=== PATIENT | male | born 1990 | race Caucasian/White ===

== ENCOUNTER 2022-03-20 15:49 | Inpatient (IN) | payer MEDICAID, SELFPAY ==
[2022-03-20] VITALS (8 sets, daily range): BP systolic 109–141; BP diastolic 64–87; PULSE 63–84; RESP 15–20; TEMP 36.3–37.4; O2SAT 97–99; BMI 25.0
--- NOTE | 2022-03-20 16:30 | DI.RAD_ITS ---
Exam(s) XR FINGER LT MIDDLE EXAM: XR FINGER LT MIDDLE EXAM DATE/TIME: CLINICAL HISTORY: pain, swelling. TECHNIQUE: 2D digital imaging was performed of the left finger. Three views were obtained. PA/AP, oblique, and lateral views were obtained. COMPARISON: None. FINDINGS: BONES: No acute fracture is present. No bony destructive lesion is seen. JOINTS: No dislocation is present. Joint spaces are unremarkable. SOFT TISSUE: There is moderately diffuse soft tissue swelling of the 3rd finger. No radiopaque forei gn body or soft tissue air is identified. IMPRESSION: 1. Moderately diffuse soft tissue swelling of the 3rd finger. 2. Otherwise unremarkable examination. DATA REPOSITORY: RADIATION DOSE DELIVERED:
--- NOTE | 2022-03-20 16:33 | ED.GENADUL_ITS ---
Discharge Plan Disposition Patient Disposition: [facility] INPATIENT Condition: Stable Discharge Details Chief Complaint: Cellulitis Clinical Impression: Flexor tenosynovitis of finger Primary Care Provider: Ruth Alejandro ED Provider: Zane Betancur Home Meds and New Rx's Prescriptions: No Action Fish Oil 1 EACH capsule 1 cap PO DAILY Glucosamine Sulf-Chondroitin 1 EACH capsule 1 tab PO DAILY ibuprofen 600 MG tablet 600 mg PO QID PRN (Reason: Pain) Qty: 15 0RF Medical Decision Making 32 yo male who denies chronic medical problems comes in with left middle finger pain and swelling for 3-4 days. 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 He has had increased pain and swelling since then tot he anterior left middle finger. He denies fevers.He appears uncomfortable and localizes the pain to the middle left finger. He has it in flexed position and the entire flexor portion of the left finger is swollen. Has significant pain with passive extension of the finger, does have a small puncture wound of the mid proximal anterior left middle finger. Suspect flexor tenosynovitis, will order xray, cbc, cmp, crp, esr and consult ortho xray shows no foreign body but does have significant swelling, Dr. Burger from ortho evaluated and plan for OR, pt updated and agrees with plan Differential Diagnosis Differential Diagnosis: flexor tenosynivitis, cellulitis Imaging Data Radiologic Study: Attestation: I personally reviewed and interpreted this imaging study as follows: Imaging: X-Ray Radiologist's impression: IMPRESSION: 1. [id number] soft tissue swelling of the 3rd digit could reflect cellulitis. Recommend clinical correlation. 2. No fractures or subluxations. 3. No radiographic evidence of acute osteomyelitis. Lab Data Lab results reviewed: Yes I reviewed the patient's lab results. HPI General Mode of arrival: ambulatory . Date/Time Provider Initiated Documentation: 03/20/22 16:15 . Limitations to Documentation: no limitations . Information obtained by: patient . History of Present Illness 32 year old M presents to the emergency department with the chief complaint of left middle finger pain, described as moderate, Patient started experiencing this day(s) (3) and it has been constant. No relieving factors improve symptom(s), No exacerbating factors reported . Patient notes no other symptoms.. Patient did receive the following treatments prior to arrival, none Related Data Home Medications Medication Instructions Recorded Confirmed glucosamine sulfate dipotassium Cl 1 tab PO DAILY 02/12/17 03/20/22 500 mg-chondroitin 400 mg capsule (Glucosamine Sulfate 2 KCL-Chondroitin) ibuprofen 600 mg tablet 600 mg PO QID PRN Pain #15 tabs 02/12/17 03/20/22 omega-3 fatty acids-fish oil 340 1 cap PO DAILY 02/12/17 03/20/22 mg-1,000 mg capsule (Fish Oil) Previous Rx's Medication Instructions Recorded ibuprofen 600 mg tablet 600 mg PO QID PRN Pain #15 tabs 02/12/17 Allergies Allergy/AdvReac Type Severity Reaction Status Date / Time No Known Allergies Allergy Unverified 03/20/22 16:11 General Stated Complaint: Cellulitis CK: 4 Review of Systems All systems reviewed & are unremarkable except as noted in HPI and below Constitutional Constitutional: Denies chills, Denies fever(s) and Denies weakness Cardiovascular Cardiovascular: Denies chest pain and Denies dyspnea Respiratory Respiratory: Denies cough and Denies dyspnea Gastrointestinal Gastrointestinal: Denies abdominal pain, Denies nausea and Denies vomiting Neurologic Neurologic: Denies weakness Psychiatric Psychiatric: Denies depression PFSH All Active Problems (Updated 03/20/22 @ 18:19 by Zane Betancur MD) Flexor tenosynovitis of finger (Acute) Surgical History (Updated 09/05/17 @ 13:53 by Daily Persaud) PROCEDURES Steroid inj in l elbow Family History (Updated 09/16/18 @ 10:51 by Raul Charles) Mother No problems noted. Father No problems noted. Maternal Grandmother Diabetes Social History (Updated 09/16/18 @ 10:50 by Raul Charles) Smoking/Tobacco Use Status: Never Quit status: considering quitting Second Hand Exposure: Yes Smoking risk assessment performed?: Yes Alcohol Intake: former Substance use type: does not use Caregiver/Support person: No Household members: significant other Housing: apartment Pets and animals: No Sexually active: Yes Do you think of yourself as: straight/heterosexual Current gender identity: male What is your relationship status?: never How often do you talk on the phone with friends or family?: three or more times per week How often do you get together with friends or relatives?: once per week How often do you attend zoroastrianism or worship services?: decline to answer Do you belong to any clubs or organized social groups?: yes Panel score (0-1 are the most socially isolated patients): 2 What type of physical activity do you participate in: other Details: Boxing and running Duration: > 90 minutes/day Frequency: 5-6 times per week Ashly/Mormonism: Syn[employer] Special ashly needs: No Do you feel safe at home: Yes Do you feel safe in your relationship?: Yes Exam Const General: no acute distress Orientation: alert HENHI Head: normal to inspection Ears: external ears normal General nose exam: external nose normal Mouth: moist mucous membranes Eyes General: appearance normal, both eyes and all related structures Neck Neck: normal visual inspection Resp Effort & Inspection: normal respiratory effort and able to speak in complete sentences Cardio Rate: regular rate Skin General skin exam: no rashes or lesions noted Neuro General: patient alert and patient oriented x3 Extrem General: capillary refill normal Psych Mental Status: mental status grossly normal Course Vital Signs Vital signs: Vital Signs Temperature 36.4 C L 03/20/22 16:07 Pulse 73 03/20/22 16:07 Respiratory Rate 16 03/20/22 16:07 Blood Pressure 141/87 H 03/20/22 16:07 Pulse Oximetry 98 03/20/22 16:07 Temperature 36.4 C L 03/20/22 16:07 Temperature Source Oral 03/20/22 16:07 Pulse 73 03/20/22 16:07 Respiratory Rate 16 03/20/22 16:07 Respiratory Effort Non-Labored 03/20/22 16:09 Blood Pressure 141/87 H 03/20/22 16:07 Blood Pressure Position Sitting 03/20/22 16:07 Pulse Oximetry 98 03/20/22 16:07 Oxygen Delivery Method Room Air 03/20/22 16:07 Oxygen Flow Rate 0 03/20/22 16:07 Pain Level 10 03/20/22 16:07 PAWSS Have you Been Recently Intoxicated or Drunk Within the Last 30 days?: No Have you Ever Experienced Previous Episodes of Alcohol Withdrawal?: No Have you ever Experienced Withdrawal Seizures?: No Have you ever Experienced Delirium Tremens(DT)s?: No Have you ever undergone Alcohol Rehabilitation Treatment (i.e, inpt ot outpatient treatment programs)?: No Have you ever Experienced Blackouts?: No Have you ever Combined Alcohol with other Downers within the last 90 days?: No Have you ever Combined Alcohol with any other Substance of Abuse during the last 90 days?: No Positive Blood Alcohol level on Presentation? [PCS.BAL]: No Evidence of Increased Autonomic Activity (i.e. HR>120, tremor, sweating, agitation, nausea)?: No Result: 0
[2022-03-20] MEDS: AMPICILLIN/SULBACTAM 3 GM in Normal Saline 100 ML IVPB (16:59)
[2022-03-20] MEDS: MORPHine 4 MG/ML SYR IVP ×2 (16:59→17:45)
[2022-03-20 17:04] LABS: Source Nasal/Nares
[2022-03-20 17:08] LABS: ESR 9 mm/hr (0-15)
[2022-03-20 17:09] LABS: Abs Immature Grans 0.05 10^3/uL (0.0-0.06); Absolute Eosinophil Count 0.25 10^3/uL (0.0-0.7); Absolute Lymphocyte Count 1.61 10^3/uL (1.2-3.4); Absolute Monocyte Count 1.52 10^3/uL (0.1-0.8); Basophils % 0.6; Eosinophils % 1.8; HCT 44.5 % (40.0-50.0); HGB 15.8 g/dL (13.5-17.5); Immature Grans % 0.4; Lymphocytes % 11.5; MCH 32.1 pg (27.0-33.0); MCHC 35.5 % (32.0-36.0); MCV 90 fL (80-95); MPV 8.2 fL (8.0-11.0); Monocytes % 10.9; Neutrophils % 74.8; Platelet Count 351 10^3/uL (130-400); RBC 4.92 10^6/uL (4.36-5.78); RDW 11.8 % (11.8-14.1); WBC 13.99 10^3/uL (4.4-10.8)
[2022-03-20 17:10] LABS: Absolute Basophil Count 0.08 10^3/uL (0.0-0.2); Absolute Neutrophil Count 10.46 10^3/uL (1.2-6.7)
--- NOTE | 2022-03-20 17:24 | DI.VRAD_ITS ---
PROCEDURE INFORMATION: Exam: XR Left Finger(s) Exam date and time: 03/20/2022 5:13 PM Age: 32 years old Clinical indication: Other: Pain swelling TECHNIQUE: Imaging protocol: Radiologic exam of the Left fingers. Views: Minimum 2 views. COMPARISON: No relevant prior studies available. FINDINGS: Bones/joints: Osseous mineralization is normal. There are no inflammatory osseous erosive changes. The joint spaces are maintained without degenerative changes. No focal osseous lesions are identified. There is no focal osseous destruction or abnormal periosteal reaction to suggest acute osteomyelitis. There are no acute displaced fractures or subluxations. Soft tissues: There is [id number] soft tissue swelling of the 3rd digit. No soft tissue air is identified. There is no evidence of a radio-opaque foreign body. IMPRESSION: 1. Vbuj-[id number] soft tissue swelling of the 3rd digit could reflect cellulitis. Recommend clinical correlation. 2. No fractures or subluxations. 3. No radiographic evidence of acute osteomyelitis. Dictated and Authenticated by: Cody Somers MD. Ordering:CAROL Degroot MD
[2022-03-20 17:27] LABS: ALT 23 U/L (16-63); AST 22 U/L (15-37); Albumin 3.6 g/dL (3.4-5.0); Alkaline Phosphatase 74 U/L (46-116); Anion Gap 6.7 mmol/L (3-11); BUN 7 mg/dL (7-18); Bilirubin, Total 0.9 mg/dL (0.2-1.0); CO2 28.3 mmol/L (21.0-32.0); Calcium 8.8 mg/dL (8.5-10.1); Chloride 104 mmol/L (98-107); Estimated GFR 101.92 (mL/min/1.73m2); Glucose 133 mg/dL (74-106); Potassium 3.6 mmol/L (3.5-5.1); Sodium 139 mmol/L (136-145); Total Protein 7.5 g/dL (6.4-8.2)
--- NOTE | 2022-03-20 17:30 | W.ORTHOCONSU ---
Date of service: 03/20/22 Time of Service: 17:32 Consult Reason Left middle finger flexor tenosynovitis Assessment and Plan Assessment and plan (1) Flexor tenosynovitis of finger: Status: Acute Assessment and plan: 32-year-old male with about 4 days of left middle finger worsening swelling and pain concerning for flexor tenosynovitis Patient describes running chainsaw in the dark about 4 to 5 days ago. No known wounds or injuries to his hand or finger. No prior issues. Describes about 3 days and definitely at least 2 days of progressively severely bad swelling and pain. Tempted to continue working through pain although for days he has been unable to bend or straighten this finger. Attempted to puncture and drain the infection yesterday with a thumbtack. Worsened pain and swelling unable to sleep last night so presented to the emergency department this afternoon. N.p.o. since about 9-10 AM. Significant pressure and pain localizing to the middle finger especially over the proximal phalanx. Denies any medical problems. NKDA. Non-smoker, nondiabetic, no cardiac pulmonary or renal problems. Appears uncomfortable in emergency department stretcher. Receiving IV antibiotics. Significant left middle finger volar and proximal phalanx soft tissue edema that appears consistent with purulent infection with skin over the proximal phalanx dark possibly early necrotic and with tenting pressure from what appears to maybe be purulence below. No significant tenderness in the palm or over the A1 marquita. Unable to flex or extend the digit at all really. Pressure over the flexor compartment distally middle and distal phalanx has significant discomfort as well. No apparent extension of infection dorsally or through the palm or involving other digits. No proximal streaking or erythema. Remainder of digits and wrist nontender with painless range of motion. X-rays show isolated middle finger soft tissue edema especially volarly and over the proximal phalanx. No foreign body or subcutaneous gas air. Labs show elevated WBC 14 and CRP 5.5. Early afebrile and hemodynamically stable.. Discussed urgent need for left middle finger surgical irrigation and debridement. Will obtain culture samples although typically staph and/or strep and growth may be limited by ED antibiotics already administered. Concerned about evolving tissue necrosis and delayed presentation of this severe infection possibly requiring additional surgery and even amputation. High risk for a persistent problem like stiffness. Plan for inpatient admission for IV antibiotics and monitoring after surgery. If requires more advanced or additional hand surgery, would arrange for transfer to a tertiary care facility with a hand specialist. The risks, benefits, and alternatives were thoroughly discussed. Patient was counseled regarding pain management, expected postoperative course, and recovery timeline. All questions were answered. Informed consent was obtained. Patient agrees and understands treatment plan. Discussed with emergency room provider [facility] All Active Problems (Updated 03/20/22 @ 17:33 by Mike Burger MD) Flexor tenosynovitis of finger (Acute) Surgical History (Updated 09/05/17 @ 13:53 by Daily Persaud) PROCEDURES Steroid inj in l elbow Family History (Updated 09/16/18 @ 10:51 by Raul Charles) Mother No problems noted. Father No problems noted. Maternal Grandmother Diabetes Social History (Updated 09/16/18 @ 10:50 by Raul Charles) Smoking/Tobacco Use Status: Never Quit status: considering quitting Second Hand Exposure: Yes Smoking risk assessment performed?: Yes Alcohol Intake: former Substance use type: does not use Caregiver/Support person: No Household members: significant other Housing: apartment Pets and animals: No Sexually active: Yes Do you think of yourself as: straight/heterosexual Current gender identity: male What is your relationship status?: never How often do you talk on the phone with friends or family?: three or more times per week How often do you get together with friends or relatives?: once per week How often do you attend worship or jehovah's witness services?: decline to answer Do you belong to any clubs or organized social groups?: yes Panel score (0-1 are the most socially isolated patients): 2 What type of physical activity do you participate in: other Details: Boxing and running Duration: > 90 minutes/day Frequency: 5-6 times per week Ashly/Latter-Day: Adventist Special ashly needs: No Do you feel safe at home: Yes Do you feel safe in your relationship?: Yes Results Last Vital Signs Temp 97.5 F L 03/20/22 16:07 Pulse 73 03/20/22 16:07 Resp 16 03/20/22 16:07 BP 141/87 H 03/20/22 16:07 Pulse Ox 98 03/20/22 16:07 Labs Result diagrams: 03/20/22 16:56 03/20/22 17:00 Labs: Laboratory Results - last 24 hr 03/20/22 03/20/22 16:56 16:56 WBC 13.99 H RBC 4.92 Hgb 15.8 Hct 44.5 MCV 90 MCH 32.1 MCHC 35.5 RDW 11.8 Plt Count 351 MPV 8.2 Immature Gran % 0.4 Neutrophils % 74.8 Lymphocytes % 11.5 Monocytes % 10.9 Eosinophils % 1.8 Basophils % 0.6 Nucleated RBC % 0.0 Absolute Neutrophils 10.46 H Absolute Lymphocytes 1.61 Absolute Monocytes 1.52 H Absolute Eosinophils 0.25 Absolute Basophils 0.08 COVID-19 Source Nasal/Nares
[2022-03-20 17:32] LABS: C-Reactive Protein 5.47 mg/dL (0.0-0.3)
[2022-03-20] MEDS: VANCOMYCIN 1,000 MG in Normal Saline 250 ML 166.6666 MG IVPB (17:32)
[2022-03-20 17:40] LABS: COVID-19 PCR Negative (Negative)
--- NOTE | 2022-03-20 17:59 | ANES.PREOP_ITS ---
General Info Date of Service Date Performed: 03/20/22 Height: 5 ft 7 in Weight: 72.575 kg Body Mass Index (BMI): 25.0 Meds Allergies and Home Medications Allergies Allergy/AdvReac Type Severity Reaction Status Date / Time No Known Allergies Allergy Unverified 03/20/22 16:11 Home Medication Medication Instructions Recorded glucosamine sulfate dipotassium Cl 1 tab PO DAILY 02/12/17 500 mg-chondroitin 400 mg capsule (Glucosamine Sulfate 2 KCL-Chondroitin) ibuprofen 600 mg tablet 600 mg PO QID PRN Pain #15 tabs 02/12/17 omega-3 fatty acids-fish oil 340 1 cap PO DAILY 02/12/17 mg-1,000 mg capsule (Fish Oil) Current Visit Medications: Current Medications Generic Name Dose Route Start Last Admin Trade Name Freq PRN Reason Stop Dose Admin Cholecalciferol 1,000 units 03/20/22 08:30 Cholecalciferol (Vitamin D3) 1,000 Unit Tab PO DAILY [facility] Docusate Sodium 100 mg 03/20/22 17:52 Docusate Sodium 100 Mg Cap PO BID PRN PRN Hydromorphone HCl 0.5 - 1 mg 03/20/22 17:48 Hydromorphone 2 Mg/Ml Syr IVP Q2H PRN PRN Vancomycin HCl 1,000 mg/ 250 mls @ 166.6666 mls/hr 03/20/22 16:39 03/20/22 17:32 Sodium Chloride IVPB 03/20/22 18:08 166.6666 mls/hr NOW ONE Administration Protocol Cefazolin Sodium/Dextrose 1 gm in 50 mls @ 100 mls/hr 03/20/22 18:00 Ancef Duplex IVPB Q8H [facility] IV Miscellaneous Supplies 1 each 03/20/22 16:30 Iv Access IV DIRECTED IAIN Lactobacillus Acidophilus/Casei 1 cap 03/21/22 08:30 L. Acidophilus, Casei, Rhamnosus Cap PO DAILY [facility] Naproxen 250 - 500 mg 03/20/22 17:47 Naproxen 500 Mg Tab PO BID PRN PRN Oxycodone HCl 5 - 10 mg 03/20/22 17:47 Oxycodone 5 Mg Tab PO Q4H PRN PRN Sodium Chloride 0 ml 03/20/22 16:30 Normal Saline Flush 10 Ml Syr IVP PRN PRN PFSH Active Problems Active Problems: Problem Status Onset Code Flexor tenosynovitis of finger M65.9 Surgical History Surgical History (Updated 09/05/17 @ 13:53 by Daily Persaud) PROCEDURES Steroid inj in l elbow Tobacco Smoking/Tobacco Use Status: Never Second hand exposure: Yes Alcohol Alcohol Intake: former Substance Use Substance use type: does not use Vital Signs and Lab Results Vital Signs Most Recent Vital Signs in EMR: Most Recent Vital Signs Temp Pulse Resp BP Pulse Ox 36.4 C L 73 16 141/87 H 98 03/20/22 16:07 03/20/22 16:07 03/20/22 16:07 03/20/22 16:07 03/20/22 16:07 Lab Results Result Diagrams: 03/20/22 16:56 03/20/22 17:00 Blood Type / Crossmatch: No Data to Display Complete Blood Count: White Blood Count 13.99 10^3/uL (4.4-10.8) H 03/20/22 16:56 Red Blood Count 4.92 10^6/uL (4.36-5.78) 03/20/22 16:56 Hemoglobin 15.8 g/dL (13.5-17.5) 03/20/22 16:56 Hematocrit 44.5 % (40.0-50.0) 03/20/22 16:56 Platelet Count 351 10^3/uL (130-400) 03/20/22 16:56 Complete Metabolic Panel: Sodium Level 139 mmol/L (136-145) 03/20/22 17:00 Potassium Level 3.6 mmol/L (3.5-5.1) 03/20/22 17:00 Chloride Level 104 mmol/L (98-107) 03/20/22 17:00 Carbon Dioxide Level 28.3 mmol/L (21.0-32.0) 03/20/22 17:00 Blood Urea Nitrogen 7 mg/dL (7-18) 03/20/22 17:00 Creatinine 1.0 mg/dL (0.70-1.30) 03/20/22 17:00 Calcium Level 8.8 mg/dL (8.5-10.1) 03/20/22 17:00 Albumin 3.6 g/dL (3.4-5.0) 03/20/22 17:00 Glucose Level 133 mg/dL (74-106) H 03/20/22 17:00 C-Reactive Protein 5.47 mg/dL (0.0-0.3) H 03/20/22 16:56 Liver Function Panel: Alanine Aminotransferase (ALT/SGPT) 23 U/L (16-63) 03/20/22 17: 00 Aspartate Amino Transf (AST/SGOT) 22 U/L (15-37) 03/20/22 17:00 Coagulation Panel: No Data to Display Cardiac Panel: No Data to Display Arterial Blood Gas: No Data to Display Venous Blood Gas: No Data to Display Pancreas Panel: No Data to Display Thyroid Panel: No Data to Display Infectious Disease: Coronavirus (COVID-19)(PCR) Negative (Negative) 03/20/22 16:56 Coronavirus 2019 Source Nasal/Nares 03/20/22 16:56 Blood Cultures: No Data to Display Toxicology Panel: No Data to Display Anesthesia Assessment and Plan Anesthesia History Personal History: No History of Anesthesia Complications Family History: No Family History of Anesthesia Complications Exercise Tolerance Exercise Tolerance: Metabolic Equivalents>4 Pertinent Negatives Pertinent Negatives: No Symptoms of GERD, No Major Cardiovascular Symptoms or Complaints and No Major Pulmonary Symptoms or Complaints Cardiac & Pulmonary Exam Cardiac Exam: Normal S1/S2 Heart Sounds Pulmonary Exam: Clear Bilateral Breath Sounds Implantable Cardiac Device Does patient have a Pacemaker or an ICD?: No Airway Exam Known Difficult Airway: No Mallampati Class: 1 Mouth Opening: Normal (> 3cm) Thyromental Distance: Greater than 3 cm Neck Range of Motion: Full ROM Neck Circumference: Normal Teeth Condition: Normal Dentition ASA Classification ASA Score: ASA 2 Emergency Case?: Yes NPO Status NPO Status: NPO Clears >2 hours, Solids >8 hours (Last ate at 10am) Anesthesia Plan Resuscitation Status: Full Code Anesthesia Technique: General Anesthesia Airway Planned: LMA Monitors Used: Standard Monitors
[2022-03-20] MEDS: Lactated Ringers 1,000 ML 30 ML IV (18:33)
[2022-03-20 18:41] LABS: Diff Comment Diff Reviewed; RBC Morphology Normal
--- NOTE | 2022-03-20 18:43 | NUR.NOTE ---
Nursing Note: Roberto [phone]
[2022-03-20] MEDS: Bupivacaine 0.5% Pres-Free W/EPI 30 ML VIAL (19:07)
--- NOTE | 2022-03-20 19:37 | ROE_ITS ---
Operative Note Operative Note DATE OF PROCEDURE: 03/20/22 PRE-OP DIAGNOSIS: Left long finger flexor tenosynovitis POST-OP DIAGNOSIS: same PROCEDURE: 1. Left long finger irrigation and debridement, CPT #37315 2. A1 marquita release, CPT# 53555 3. A3 marquita release, CPT# 01377 SURGEON: Mike Burger ANESTHESIA TYPE: Local By Surgeon and General LMA/ETT Refer to Anesthesia Record TOURNIQUET TIME: 0 COMPLICATIONS: None Patient was transported to: PACU Patient's condition: stable Indications: Please see complete medical record for details. Procedure Description: In the operating room, general anesthesia was induced. The patient was positioned supine on the operating room table. All bony prominences were well- padded. Preoperative antibiotics were omitted given recently administered emergency room antibiotics. The left hand was prepped and draped in the usual sterile fashion. The correct patient, procedure, and side of the procedure were all verified prior to incision. Over the proximal phalanx area of most prominent purulence and tissue early necrosis especially radially extending from webspace to the PIPJ the small nearly open purulent area was squeezed easily expressing a few cc of purulence. Cultures were obtained. A volar zigzag Gabi incision was made extending from over the MCPJ to the DIPJ. Gross purulence and tissue necrosis was encountered over the proximal phalanx. Additional deep culture swab was. Tissue was debrided to healthy margin with the flexor tendons over the proximal phalanx readily exposed after sweeping away necrotic and abnormal subcutaneous tissue. The radial neurovascular digital bundle was readily visible and protected. The ulnar side was not directly exposed or encountered. The C1 and A3 pulleys were thin and friable. The A3 marquita was released via spreading to fully expose the zone of worst deep infection and deliver tendon sheaths for better inspection and irrigation. There was abnormal fluid in the flexor tendon sheaths that was expressed and irrigated. The tendons were intact and fairly normal-appearing. There is no additional severe infection more distally. Proximally, the A1 marquita was exposed and released to complete inspection irrigation debridement proximally with no additional extension of the apparent infection. The flexor tendons were then delivered and irrigated proximally and centrally in the incision. Irrigation was sent through the remaining pulleys and about the flexor tendons until there was clear fluid. The entire wound was copiously irrigated with normal saline followed by Betadine wash and lastly normal saline until everything was clear and there is no remaining infection or necrotic tissue. Skin margins were poor over the proximal phalanx and debrided with scissors to a more viable margin. The skin was loosely closed using 4-0 nylon in a mattress fashion. Incision covered with Xeroform, bulky gauze, and wrapped with an Mitch bandage. The patient awoke from anesthesia without complication and was transferred to the recovery room in a stable condition.
--- NOTE | 2022-03-20 19:41 | W.PM.PROGNOT ---
Date of Service Date of service: 03/20/22 Time of Service: 19:45 Assessment and Plan Assessment and plan (1) Flexor tenosynovitis of finger: Status: Acute Assessment and plan: 32-year-old male postop day #0 status post left middle finger irrigation and debridement Strict elevation left hand. Multimodal pain control. Ambulate self. CHE stockings. Follow cultures. Continue empiric cefazolin antibiotic. Possible discharge home tomorrow evening or Jerod on oral antibiotics pending appropriate clinical improvement. Repeat labs if needed. Will change dressing prior to discharge and instruct on finger range of motion exercises to prevent stiffness. Objective Last Vital Signs Temp 98.4 F 03/20/22 18:33 Pulse 70 03/20/22 18:33 Resp 17 03/20/22 18:33 BP 130/76 03/20/22 18:33 Pulse Ox 99 03/20/22 18:33 Laboratory Results - last 24 hr 03/20/22 03/20/22 03/20/22 16:56 16:56 16:56 WBC 13.99 H RBC 4.92 Hgb 15.8 Hct 44.5 MCV 90 MCH 32.1 MCHC 35.5 RDW 11.8 Plt Count 351 MPV 8.2 Immature Gran % 0.4 Neutrophils % 74.8 Lymphocytes % 11.5 Monocytes % 10.9 Eosinophils % 1.8 Basophils % 0.6 Nucleated RBC % 0.0 Absolute Neutrophils 10.46 H Absolute Lymphocytes 1.61 Absolute Monocytes 1.52 H Absolute Eosinophils 0.25 Absolute Basophils 0.08 RBC Morphology Normal ESR Sodium Potassium Chloride Carbon Dioxide Anion Gap BUN Creatinine Est GFR (CKD-EPI 2020) Glucose Calcium Total Bilirubin AST ALT Alkaline Phosphatase C-Reactive Protein 5.47 H Total Protein Albumin COVID-19 Source Nasal/Nares SARS-CoV-2 (PCR) Negative 03/20/22 03/20/22 16:56 17:00 WBC RBC Hgb Hct MCV MCH MCHC RDW Plt Count MPV Immature Gran % Neutrophils % Lymphocytes % Monocytes % Eosinophils % Basophils % Nucleated RBC % Absolute Neutrophils Absolute Lymphocytes Absolute Monocytes Absolute Eosinophils Absolute Basophils RBC Morphology ESR 9 Sodium 139 Potassium 3.6 Chloride 104 Carbon Dioxide 28.3 Anion Gap 6.7 BUN 7 Creatinine 1.0 Est GFR (CKD-EPI 2020) 101.92 Glucose 133 H Calcium 8.8 Total Bilirubin 0.9 AST 22 ALT 23 Alkaline Phosphatase 74 C-Reactive Protein Total Protein 7.5 Albumin 3.6 COVID-19 Source SARS-CoV-2 (PCR) PAWSS Have you Been Recently Intoxicated or Drunk Within the Last 30 days?: No Have you Ever Experienced Previous Episodes of Alcohol Withdrawal?: No Have you ever Experienced Withdrawal Seizures?: No Have you ever Experienced Delirium Tremens(DT)s?: No Have you ever undergone Alcohol Rehabilitation Treatment (i.e, inpt ot outpatient treatment programs)?: No Have you ever Experienced Blackouts?: No Have you ever Combined Alcohol with other Downers within the last 90 days?: No Have you ever Combined Alcohol with any other Substance of Abuse during the last 90 days?: No Positive Blood Alcohol level on Presentation? [PCS.BAL]: No Evidence of Increased Autonomic Activity (i.e. HR>120, tremor, sweating, agitation, nausea)?: No Result: 0
--- NOTE | 2022-03-20 19:44 | W.ANESPOSTOP ---
Postoperative Evaluation Date, Time and Location Date Performed: 03/20/22 Time Performed: 19:45 Patient Location: PACU Vital Signs Most Recent Imported Vital Signs: Most Recent Vital Signs Temp Pulse Resp BP Pulse Ox 36.6 C 79 17 123/82 98 03/20/22 19:39 03/20/22 19:39 03/20/22 19:39 03/20/22 19:39 03/20/22 19:39 Pain Score Most Recent Pain Score: Most Recent Pain Score Pain Level 10 03/20/22 16:07 Assessment Mental Status: Arousable with meaningful communication Airway and Respiratory Function: Patent airway with normal (patient baseline) respiratory exam Cardiovascular Function: Hemodynamically Stable Hydration Status: Adequately Hydrated Nausea & Vomiting: No Nausea or Vomiting Pain: Pt. Denies Any Pain Peripheral Nerve Block: Patient did not receive a nerve block
[2022-03-20] MEDS: ceFAZolin 1 GM/50 ML BAG IVPB (21:18)
[2022-03-21] VITALS (8 sets, daily range): BP systolic 117–144; BP diastolic 72–90; PULSE 66–90; RESP 16–20; TEMP 36.6–39.1; O2SAT 96–99
[2022-03-21] MEDS: Naproxen 500 MG TAB PO (03:45)
[2022-03-21] MEDS: ceFAZolin 1 GM/50 ML BAG IVPB ×3 (03:46→19:49)
[2022-03-21] MEDS: Normal Saline Flush 10 ML SYR IVP ×4 (04:27→19:49)
[2022-03-21] MEDS: HYDROmorphone 2 MG/ML SYR IVP ×3 (04:27→19:48)
[2022-03-21] MEDS: oxyCODONE 5 MG TAB PO ×4 (04:30→21:32)
[2022-03-21] MEDS: Cholecalciferol (Vitamin D3) 1,000 UNIT TAB 1000 UNITS PO (08:05)
--- NOTE | 2022-03-21 10:05 | W.PM.PROGNOT ---
Date of Service Date of service: 03/21/22 Time of Service: 09:00 Assessment and Plan Assessment and plan (1) Flexor tenosynovitis of finger: Status: Acute Assessment and plan: 32-year-old male postop day #1 status post left middle finger irrigation and debridement for severe infection Feeling significantly improved. Much less pain and swelling about the finger. At times feels what sounds like nerve shooting pain more so on the radial side. Able to barely flex and extend the digit however tolerance is much improved compared to yesterday prior to surgery. Febrile overnight decreasing through the morning. Patient states he is feeling overall much better and was able to sleep last night. Left hand and finger bandage taken down. Decreasing swelling erythema and only minimal radial sided mid?incision mildly purulent mostly serous drainage. Unable to express any more fluid. Proximal distal aspects of the incision look good. Centrally and radially over the area of worst infection and necrosis still appears marginal, but probably improved compared to yesterday. Patient is able to demonstrate intact sensation although altered throughout the digit and tip. Still uncomfortable with flexion extension but improved compared to yesterday. Dressing consisting of Xeroform, 4 x 4 gauze, and 2 inch Mitch wrap reapplied. Continue strict elevation left hand. Multimodal pain control. Ambulate self. CHE stockings. Follow cultures, which are showing gram-positive cocci. Continue empiric cefazolin antibiotic. Start daily soaks and dressing changes tomorrow as ordered Possible discharge home this evening or Friday on oral antibiotics pending appropriate clinical improvement. Repeat labs if needed based on wound appearance and/or fevers. Instructed on finger range of motion exercises to prevent stiffness. Will order hand therapy if prolonged admission. Objective Last Vital Signs Temp 99.7 F H 03/21/22 07:42 Pulse 82 03/21/22 07:42 Resp 20 03/21/22 07:42 BP 134/82 03/21/22 07:42 Pulse Ox 98 03/21/22 07:42 Laboratory Results - last 24 hr 03/20/22 03/20/22 03/20/22 16:56 16:56 16:56 WBC 13.99 H RBC 4.92 Hgb 15.8 Hct 44.5 MCV 90 MCH 32.1 MCHC 35.5 RDW 11.8 Plt Count 351 MPV 8.2 Immature Gran % 0.4 Neutrophils % 74.8 Lymphocytes % 11.5 Monocytes % 10.9 Eosinophils % 1.8 Basophils % 0.6 Nucleated RBC % 0.0 Absolute Neutrophils 10.46 H Absolute Lymphocytes 1.61 Absolute Monocytes 1.52 H Absolute Eosinophils 0.25 Absolute Basophils 0.08 RBC Morphology Normal ESR Sodium Potassium Chloride Carbon Dioxide Anion Gap BUN Creatinine Est GFR (CKD-EPI 2020) Glucose Calcium Total Bilirubin AST ALT Alkaline Phosphatase C-Reactive Protein 5.47 H Total Protein Albumin COVID-19 Source Nasal/Nares SARS-CoV-2 (PCR) Negative 03/20/22 03/20/22 16:56 17:00 WBC RBC Hgb Hct MCV MCH MCHC RDW Plt Count MPV Immature Gran % Neutrophils % Lymphocytes % Monocytes % Eosinophils % Basophils % Nucleated RBC % Absolute Neutrophils Absolute Lymphocytes Absolute Monocytes Absolute Eosinophils Absolute Basophils RBC Morphology ESR 9 Sodium 139 Potassium 3.6 Chloride 104 Carbon Dioxide 28.3 Anion Gap 6.7 BUN 7 Creatinine 1.0 Est GFR (CKD-EPI 2020) 101.92 Glucose 133 H Calcium 8.8 Total Bilirubin 0.9 AST 22 ALT 23 Alkaline Phosphatase 74 C-Reactive Protein Total Protein 7.5 Albumin 3.6 COVID-19 Source SARS-CoV-2 (PCR) PAWSS Have you Been Recently Intoxicated or Drunk Within the Last 30 days?: Yes Have you Ever Experienced Previous Episodes of Alcohol Withdrawal?: No Have you ever Experienced Withdrawal Seizures?: No Have you ever Experienced Delirium Tremens(DT)s?: No Have you ever undergone Alcohol Rehabilitation Treatment (i.e, inpt ot outpatient treatment programs)?: No Have you ever Experienced Blackouts?: No Have you ever Combined Alcohol with other Downers within the last 90 days?: No Have you ever Combined Alcohol with any other Substance of Abuse during the last 90 days?: No Positive Blood Alcohol level on Presentation? [PCS.BAL]: No Evidence of Increased Autonomic Activity (i.e. HR>120, tremor, sweating, agitation, nausea)?: No Result: 1
[2022-03-21] MEDS: Acetaminophen 500 MG TAB 1000 MG PO ×2 (14:15→19:48)
[2022-03-21] MEDS: VANCOMYCIN/WATER (PEG) 1.25 GM/250 ML BAG IVPB (14:24)
--- NOTE | 2022-03-21 17:00 | INITIAL_ITS ---
- If Service Date Differs Date of service: 03/21/22 Time of Service: 17:00 Care Management Initial Assess REASON FOR HOSPITALIZATION:: Left Finger Infection PREVIOUS FUNCTIONAL STATUS/SOCIAL/FAMILY SUPPORTS:: Resides in [place] with family, independent at baseline. ADVANCE DIRECTIVES:: None on file. Has patient been provided with info about the portal/API?: No Did the patient sign up for the portal?: No CODE STATUS:: Full Code INSURANCE COVERAGE / FINANCIAL ISSUES:: Medicaid PRIMARY CARE PHYSICIAN:: Ruth Alejandro POTENTIAL DISCHARGE NEEDS:: Follow up appointments. PATIENT/FAMILY EDUCATION NEEDS:: Review discharge instructions, discuss Ask Me Three. ANTICIPATED BARRIERS TO DISCHARGE:: None identified. TRANSPORTATION:: Via private vehicle. PLAN:: Per MD: Follow cultures, which are showing gram-positive cocci. Continue empiric cefazolin antibiotic. Start daily soaks and dressing changes tomorrow as ordered. Possible discharge home this evening or Friday on oral antibiotics pending appropriate clinical improvement. Repeat labs if needed based on wound appearance and/or fevers. Instructed on finger range of motion exercises to prevent stiffness. Will order hand therapy if prolonged admission. Kofi will return home when ready per MD. 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 He will follow up with community based providers and transport via private vehicle with family. Treatment plan as above, per MD. No additional services anticipated at this time. CM continues to follow.
[2022-03-22] MEDS: HYDROmorphone 2 MG/ML SYR IVP ×2 (01:43→13:16)
[2022-03-22] MEDS: Acetaminophen 500 MG TAB 1000 MG PO (01:44)
[2022-03-22] MEDS: Normal Saline Flush 10 ML SYR IVP (01:44)
[2022-03-22] MEDS: VANCOMYCIN/WATER (PEG) 1.25 GM/250 ML BAG IVPB ×2 (01:45→14:49)
[2022-03-22] MEDS: ceFAZolin 1 GM/50 ML BAG IVPB (04:03)
[2022-03-22 04:11] VITALS: BP 128/83; PULSE 62; RESP 16; TEMP 36.5; O2SAT 98
[2022-03-22] MEDS: Naproxen 500 MG TAB PO ×2 (04:19→09:31)
[2022-03-22 07:16] LABS: Abs Immature Grans 0.05 10^3/uL (0.0-0.06); Absolute Basophil Count 0.08 10^3/uL (0.0-0.2); Absolute Eosinophil Count 0.44 10^3/uL (0.0-0.7); Absolute Lymphocyte Count 2.12 10^3/uL (1.2-3.4); Absolute Monocyte Count 1.17 10^3/uL (0.1-0.8); Absolute Neutrophil Count 5.38 10^3/uL (1.2-6.7); Basophils % 0.9; Eosinophils % 4.8; HCT 44.9 % (40.0-50.0); HGB 15.4 g/dL (13.5-17.5); Immature Grans % 0.5; Lymphocytes % 22.9; MCH 32.1 pg (27.0-33.0); MCHC 34.3 % (32.0-36.0); MCV 94 fL (80-95); MPV 8.1 fL (8.0-11.0); Monocytes % 12.7; Neutrophils % 58.2; Platelet Count 291 10^3/uL (130-400); RDW 11.8 % (11.8-14.1); RDW-SD 40.7 fL; WBC 9.24 10^3/uL (4.4-10.8)
[2022-03-22 07:29] LABS: C-Reactive Protein 12.71 mg/dL (0.0-0.3)
[2022-03-22 07:55] LABS: ESR 20 mm/hr (0-15)
[2022-03-22 08:12] VITALS: BP 131/91; PULSE 63; RESP 18; TEMP 36.4; O2SAT 98
[2022-03-22] MEDS: Cholecalciferol (Vitamin D3) 1,000 UNIT TAB 1000 UNITS PO (09:31)
[2022-03-22 11:13] VITALS: BP 128/79; PULSE 68; RESP 18; TEMP 36.3; O2SAT 99
[2022-03-22] MEDS: Hydrogen Peroxide 3% 480 ML BTL TP (14:46)
[2022-03-22 15:18] VITALS: BP 141/86; PULSE 71; RESP 19; TEMP 36.7; O2SAT 99
--- NOTE | 2022-03-22 15:52 | W.PM.DS.N ---
DS: Diagnosis Discharge Diagnosis (1) Flexor tenosynovitis of finger: Status: Acute Discharge Plan Disposition Patient Disposition: HOME Condition: Stable Discharge Details Reason For Visit: Left Finger Infection Admit Date/Time: 03/20/22 17:48 Admit Provider: Mike Burger Attending Provider: Mike Burger Primary Care Provider: Ruth Alejandro Hospital Course Hospital Course: Admitted for surgery on 03/20/2022 due to severe left middle finger infection. Cultures positive for MRSA. Clinically improved postop. Home Meds and New Rx's Prescriptions: New naproxen 250 mg tablet 250 - 500 mg PO BID PRNQty: 40 0RF Rx Instructions: take with a meal oxycodone 5 mg tablet 5 - 10 mg PO Q4H MDD 30 mg PRN (Reason: moderate to severe pain) Qty: 18 0RF sulfamethoxazole-trimethoprim [Bactrim DS] 800-160 mg tablet 1 tab PO BID 7 Days Qty: 14 0RF Bio-K plus 50 billion cell capsule,delayed release(DR/EC) 1 cap PO DAILY 10 Days Qty: 10 0RF Continued Fish Oil 1 EACH capsule 1 cap PO DAILY Glucosamine Sulf-Chondroitin 1 EACH capsule 1 tab PO DAILY Discontinued ibuprofen 600 MG tablet 600 mg PO QID PRN (Reason: Pain) Qty: 15 0RF Discharge Instructions Additional Instructions: Surgery 03/20/2022 left middle finger I&D Activity: Encourage increasing range of motion left middle finger. Avoid any strenuous hand activities. A hand therapy prescription will be provided on follow-up if needed. Prescriptions: Bactrim DS (sulfamethoxazole/ trimethoprim) take 1 on empty stomach twice per day for 7 days (antibiotic) Take 1 probiotic daily for 10 days Naproxen 250 mg take 1-2 every 12 hours with a meal as needed for moderate pain Oxycodone 5 mg take 1-2 every 4-6 hours as needed for severe pain You may use [id number] Tylenol (acetaminophen) as needed for mild pain. These pain medications may be taken all at once or in different combinations as needed. Also, recommend Colace (docusate) as a stool softener as surgery and pain medicine cause constipation. You may try [id number] diphenhydramine (Benadryl) 25-50 mg nightly as a sleep aid Dressings: Daily finger soaks in sterile saline and/or hydrogen peroxide and dressing changes as instructed with Xeroform, dry gauze, and Mitch bandage. Allow moist/wet skin to air dry. Follow-up: My office will call you on Friday to make an appointment to see me on 03/26 or 03/27 Let us know right away if you develop any redness, drainage, fevers, chest pain, or trouble breathing. Do not drink alcohol or drive for at least 24 hours after anesthesia. Please call the office during business hours with any questions or concerns. Referrals: Mike Burger MD [ [facility] STAFF PHYSICIAN] - Activity:: Activity as Tolerated Equipment/Supplies:: Dressing supplies Diet:: As Tolerated Discharge Orders Discharge Orders: Discharge Order (Routine); Ordered 03/22/22 Ordered By: Mike Burger DS: Summary Time Spent with Patient providing and/or coordinating discharge services: Less than 30 minutes Status at Discharge Functional status at discharge: independent ambulation Overall status at discharge: patient is progressing back to baseline Mental Status: mental status grossly normal Speech and Movement: speech and movement normal Mood: congruent mood Affect: normal affect Exam Psych Mental Status: mental status grossly normal Speech and Movement: speech and movement normal Mood: congruent mood Affect: normal affect DS: Data Vitals/I&O Vitals and I&O: Vital Signs Temperature 98.1 F 03/22/22 15:18 Temperature Source Tympanic 03/22/22 15:18 Pulse 71 03/22/22 15:18 Pulse Rhythm Regular 03/22/22 11:25 Respiratory Rate 19 03/22/22 15:18 Respiratory Effort 03/22/22 11:25 Respiratory Depth Normal 03/22/22 11:25 Respiratory Pattern Normal 03/22/22 11:25 Blood Pressure 141/86 H 03/22/22 15:18 Blood Pressure Position Sitting 03/20/22 16:07 Pulse Oximetry 99 03/22/22 15:18 Oxygen Delivery Method Cpap 03/22/22 15:18 Oxygen Flow Rate 0 03/22/22 15:18 Pain Level 5 03/22/22 11:13 Comment 03/22/22 08:12 Intake & Output 03/21/22 03/22/22 03/22/22 23:59 11:59 23:59 Intake Total 1300 / 1950 790 / 790 Balance 1300 / 1950 790 / 790 Intake: IV 350 / 400 300 / 300 Oral 950 / 1550 490 / 490 Other: Urine Color Yellow Urine Appearance Clear Comment Unmeasured urine amount. Patient voided in the toilet. pT uses the bathroom independently. pT goes to bathroom independently. Voiding Methods Toilet Toilet Toilet Data Completed and Pending Labs on day of discharge: Labs from last 24 hours 03/22/22 03/22/22 03/22/22 06:55 06:55 06:55 WBC 9.24 RBC 4.80 Hgb 15.4 Hct 44.9 MCV 94 D MCH 32.1 MCHC 34.3 RDW 11.8 Plt Count 291 MPV 8.1 Immature Gran % 0.5 Neutrophils % 58.2 Lymphocytes % 22.9 Monocytes % 12.7 Eosinophils % 4.8 Basophils % 0.9 Nucleated RBC % 0.0 Absolute Neutrophils 5.38 Absolute Lymphocytes 2.12 Absolute Monocytes 1.17 H Absolute Eosinophils 0.44 Absolute Basophils 0.08 ESR 20 H C-Reactive Protein 12.71 H Preliminary micro results at discharge 03/20/22 18:47 Anaerobic Culture - Preliminary Hand - Left 03/20/22 07:55 Anaerobic Culture - Preliminary Hand - Left 03/20/22 18:50 Wound Culture - Preliminary Finger - Left Third Digit Staph aureus, MRSA 03/20/22 18:47 Wound Culture - Preliminary Finger - Left Third Digit Staph aureus, MRSA 03/20/22 07:55 Wound Culture - Preliminary Finger - Left Third Digit Staph aureus, MRSA PFSH All Active Problems Flexor tenosynovitis of finger (Acute) Surgical History PROCEDURES Steroid inj in l elbow Family History Mother No problems noted. Father No problems noted. Maternal Grandmother Diabetes Social History Smoking/Tobacco Use Status: Never Quit status: considering quitting Second Hand Exposure: Yes Smoking risk assessment performed?: Yes Alcohol Intake: former Substance use type: does not use Caregiver/Support person: No Household members: significant other Housing: apartment Pets and animals: No Sexually active: Yes Do you think of yourself as: straight/heterosexual Current gender identity: male What is your relationship status?: never How often do you talk on the phone with friends or family?: three or more times per week How often do you get together with friends or relatives?: once per week How often do you attend scientologist or orthodox services?: decline to answer Do you belong to any clubs or organized social groups?: yes Panel score (0-1 are the most socially isolated patients): 2 What type of physical activity do you participate in: other Details: Boxing and running Duration: > 90 minutes/day Frequency: 5-6 times per week Ashly/Episcopalian: Church Special ashly needs: No Do you feel safe at home: Yes Do you feel safe in your relationship?: Yes
--- NOTE | 2022-03-22 16:04 | W.PM.PROGNOT ---
Date of Service Date of service: 03/22/22 Time of Service: 16:07 Assessment and Plan Assessment and plan (1) Flexor tenosynovitis of finger: Status: Acute Assessment and plan: 32-year-old male postop day #2 status post left middle finger irrigation and debridement for severe infection Feeling even more improved. Much less pain about this finger only difficulties due to burning and what sounds like nerve pain, which has improved since yesterday. Able to tolerate flexion extension much better although still significant limited. No fevers chills. Afebrile and WBC normalized Left hand and finger bandage taken down. No purulence. Maintain significant edema with less erythema. Much more comfortable about surgical site and digit. Proximal and distal aspects continue to look quite good. Some maceration over the central worst part of the infection. Improved more normalized radial ulnar and tip sensation. Dressing consisting of Xeroform, 4 x 4 gauze, and 2 inch Mitch wrap reapplied. Cultures positive MRSA. Patient feels ready for discharge on oral antibiotics. He understands instructions for dressing changes and to return if finger status worsens. He will continue finger range of motion exercises and use a probiotic while taking antibiotics. My office will call him on Friday to make an appointment to see me on Friday or Friday of next week. Objective Last Vital Signs Temp 98.1 F 03/22/22 15:18 Pulse 71 03/22/22 15:18 Resp 19 03/22/22 15:18 BP 141/86 H 03/22/22 15:18 Pulse Ox 99 03/22/22 15:18 Laboratory Results - last 24 hr 03/22/22 03/22/22 03/22/22 06:55 06:55 06:55 WBC 9.24 RBC 4.80 Hgb 15.4 Hct 44.9 MCV 94 D MCH 32.1 MCHC 34.3 RDW 11.8 Plt Count 291 MPV 8.1 Immature Gran % 0.5 Neutrophils % 58.2 Lymphocytes % 22.9 Monocytes % 12.7 Eosinophils % 4.8 Basophils % 0.9 Nucleated RBC % 0.0 Absolute Neutrophils 5.38 Absolute Lymphocytes 2.12 Absolute Monocytes 1.17 H Absolute Eosinophils 0.44 Absolute Basophils 0.08 ESR 20 H C-Reactive Protein 12.71 H PAWSS Have you Been Recently Intoxicated or Drunk Within the Last 30 days?: Yes Have you Ever Experienced Previous Episodes of Alcohol Withdrawal?: No Have you ever Experienced Withdrawal Seizures?: No Have you ever Experienced Delirium Tremens(DT)s?: No Have you ever undergone Alcohol Rehabilitation Treatment (i.e, inpt ot outpatient treatment programs)?: No Have you ever Experienced Blackouts?: No Have you ever Combined Alcohol with other Downers within the last 90 days?: No Have you ever Combined Alcohol with any other Substance of Abuse during the last 90 days?: No Positive Blood Alcohol level on Presentation? [PCS.BAL]: No Evidence of Increased Autonomic Activity (i.e. HR>120, tremor, sweating, agitation, nausea)?: No Result: 1
[2022-03-22] MEDS: Sulfameth/Trimeth DS TAB 1 TAB PO (17:05)
== END 2022-03-22 17:28 | disposition home or self-care (01) | DRG 514 ==
LOC: ER 18:19 → MS 03-21 00:42 → ER 03-21 10:11 → DSU 03-21 10:11 → MS 03-21 10:12
PROVIDERS: Admitting Provider Student in an Organized Health Care Education/Training Program; Emergency Provider Emergency Medicine; PCP Family Medicine; Visit Provider Student in an Organized Health Care Education/Training Program
PROC: 0L980ZZ Drainage of Left Hand Tendon, Open Approach (ICD-10-PCS; CPT 26055; principal; 2022-03-20 18:05)
DX: M65.142 Other infective (teno)synovitis, left hand (principal); B95.62 Methicillin resistant Staphylococcus aureus infection as the cause of diseases classified elsewhere
CPT/HCPCS: 26055 ×2; 26020; 36415; 80053; 85652; 87077; 87635; 99285; 73140; 85025; 86140; 87070; 87075; 87186; 87205; J0295; J0690; J1170; J1885; J2270; J2405; J3010